=== PATIENT | male | born 1990 | race Two or more races ===

== ENCOUNTER 2021-04-23 07:29 | Emergency (ER) | payer SELFPAY ==
[2021-04-23 07:44] VITALS: TEMP 98.2; BMI 33.4
[2021-04-23] MEDS ORDERED: SODIUM CHLORIDE 1,000 ML IV STA (08:12)
[2021-04-23] MEDS ORDERED: PANTOPRAZOLE SODIUM 40 MG VIAL IVPUSH ONE (08:13)
[2021-04-23] MEDS ORDERED: PANTOPRAZOLE SODIUM 40 MG VIAL ONE (08:44)
[2021-04-23 09:43] LABS: BASO % 0.8 % (0-2.0); EOS % 3.6 % (0-4.5); HEMATOCRIT 47.4 % (35.4-49); HEMOGLOBIN 16.1 GM/dL (11.7-16.9); LYMPH % 29.9 % (8-40); MCH 30.5 pg (25.7-33.7); MCHC 33.9 g/dl (32.0-35.9); MEAN CELL VOLUME 89.9 fl (80-96); MEAN PLT VOLUME 8.5 fl (7.5-11.1); MONO % 10.3 % (3.8-10.2); NEUT % 55.4 % (42.8-82.8); PLATELET COUNT 279 10^3/uL (134-434); RBC 5.27 M/mm3 (4.00-5.60); RDW 13.4 % (11.9-15.9); WHITE BLOOD COUNT 4.5 K/mm3 (4.0-10.0)
[2021-04-23 09:58] LABS: EPI CELLS 19 /uL (0-25.1); HYALINE CASTS 1 /uL (0-3.1); PH,URINE 5.5 (5.0-8.0); URINE APPEARANCE CLEAR; URINE BACTERIA 369 /uL (0-1359); URINE BILIRUBIN NEGATIVE (NEGATIVE); URINE COLOR YELLOW; URINE GLUCOSE (UA) NEGATIVE (NEGATIVE); URINE KETONE NEGATIVE (NEGATIVE); URINE LEUK ESTERASE 2+ (NEGATIVE); URINE NITRITE NEGATIVE (NEGATIVE); URINE PROTEIN NEGATIVE (NEGATIVE); URINE RBC 2 /uL (0-23.9); URINE UROBILINOGEN 0.2 mg/dL (0.2-1.0); URINE WBC 78 /uL (0-25.8)
[2021-04-23 10:00] LABS: CHLORIDE 103 mmol/L (98-107); SODIUM 136 mmol/L (136-145)
[2021-04-23 10:03] LABS: ALBUMIN 4.1 g/dl (3.4-5.0); BLOOD UREA NITROGEN 15.2 mg/dL (7-18); CALCIUM 9.5 mg/dL (8.5-10.1); CO2 30 mmol/L (21-32); GLUCOSE,RANDOM 99 mg/dL (74-106)
[2021-04-23 10:04] LABS: ANION GAP 3 MMOL/L (8-16); INR 1.06 (0.83-1.09); PROTHROMBIN TIME (PATIENT) 12.2 SEC (9.7-13.0)
[2021-04-23 10:05] LABS: SGPT/ALT 34 U/L (13-61)
[2021-04-23 10:06] LABS: SGOT/AST 55 U/L (15-37)
[2021-04-23 10:07] LABS: BILIRUBIN,TOTAL 0.5 mg/dL (0.2-1); TOT PROT 8.2 g/dl (6.4-8.2)
[2021-04-23 10:08] LABS: ALK PHOS 96 U/L (45-117)
[2021-04-23 10:56] LABS: CALCIUM 8.6 mg/dL (8.5-10.1)
[2021-04-23 10:59] LABS: CREATININE 0.9 mg/dL (0.55-1.3)
[2021-04-23 13:02] LABS: BASO % 0.7 % (0-2.0); EOS % 2.4 % (0-4.5); HEMATOCRIT 45.1 % (35.4-49); HEMOGLOBIN 14.8 GM/dL (11.7-16.9); MCH 29.6 pg (25.7-33.7); MCHC 32.7 g/dl (32.0-35.9); MEAN CELL VOLUME 90.6 fl (80-96); MEAN PLT VOLUME 8.2 fl (7.5-11.1); MONO % 13.1 % (3.8-10.2); NEUT % 47.8 % (42.8-82.8); PLATELET COUNT 262 10^3/uL (134-434); RBC 4.98 M/mm3 (4.00-5.60); RDW 13.2 % (11.9-15.9); WHITE BLOOD COUNT 4.7 K/mm3 (4.0-10.0)
[2021-04-23 13:02] LABS: ALBUMIN 3.8 g/dl (3.4-5.0)
[2021-04-23 13:07] LABS: BILIRUBIN,TOTAL 0.4 mg/dL (0.2-1); TOT PROT 7.1 g/dl (6.4-8.2)
[2021-04-23 14:16] VITALS: BP 143/62; PULSE 66
== END 2021-04-23 14:05 | disposition left against medical advice (07) ==
LOC: JER 07:29
PROC: 3E033NZ Introduction of Analgesics, Hypnotics, Sedatives into Peripheral Vein, Percutaneous Approach (ICD-10-PCS; principal; 2021-04-23)
PROC: 3E0337Z Introduction of Electrolytic and Water Balance Substance into Peripheral Vein, Percutaneous Approach (ICD-10-PCS; 2021-04-23)
DX: K62.5 Hemorrhage of anus and rectum (principal); K92.0 Hematemesis
CPT/HCPCS: 36415; 74177-TC; 80048; 80053; 81003; 85025; 85610; 86850; 86900; 86901; 99285-25; Q9967